=== PATIENT | female | born 1960 | race Caucasian/White ===

== ENCOUNTER 2020-08-30 09:37 | Day surgery (SDC) | payer MEDICARE, MEDICAID ==
[2020-08-28 12:16] LABS: BASOPHILS # (AUTO) 0.1 X10'3 (0-0.2); EOSINOPHILS # (AUTO) 0.2 X10'3 (0-0.9); EOSINOPHILS % (AUTO) 1.8 % (0-6); MONOCYTES # (AUTO) 0.6 X10'3 (0-0.9); RED CELL DISTRIBUTION WIDTH 13.8 % (11.5-14.5)
[2020-08-28 12:18] LABS: BASOPHILS % (AUTO) 1.2 % (0-1); LYMPHOCYTES # (AUTO) 3.4 X10'3 (1.1-4.8); LYMPHOCYTES % (AUTO) 40.5 % (21-51); MEAN CORPUSCULAR HEMOGLOBIN 29.4 PG (27.0-31.0); MEAN CORPUSCULAR VOLUME 89.1 FL (78-98); MEAN PLATELET VOLUME 11.9 FL (7.4-10.4); MONOCYTES % (AUTO) 7.1 % (2-12); NEUTROPHILS # (AUTO) 4.2 X10'3 (1.8-7.7); NEUTROPHILS % (AUTO) 49.4 % (42-75); PRE OP HEMATOCRIT 42.3 % (35.0-45.0); PRE OP HEMOGLOBIN 13.9 g/dL (12.0-16.0); PRE OP PLATELET COUNT 166 X10'3 (140-440); RED BLOOD COUNT 4.75 X10'6 (4.20-5.60)
[2020-08-28 12:26] LABS: ALBUMIN/GLOBULIN RATIO 1.1 (1.1-1.5); ALKALINE PHOSPHATASE 79 IU/L (46-116); BLOOD UREA NITROGEN 19 MG/DL (7-18); BUN/CREATININE RATIO 24.4 (6.6-38.0); CALCIUM 9.4 MG/DL (8.5-10.1); CHLORIDE 107 MMOL/L (99-107); CREATININE 0.78 MG/DL (0.40-0.90); PRE OP ALT 29 U/L (30-65); PRE OP ANION GAP 9 (8-16); PRE OP AST 21 U/L (10-37); PRE OP BILIRUB, TOTAL 0.3 MG/DL (0.0-1.0); PRE OP GLUCOSE 89 MG/DL (70-104); PRE OP POTASSIUM 3.7 MMOL/L (3.4-5.1); PRE OP SODIUM 143 MMOL/L (135-145); TOTAL CARBON DIOXIDE 27.5 MMOL/L (24-32); TOTAL PROTEIN 7.6 G/DL (6.4-8.2); eGFR 76 ML/MIN
[2020-08-28 12:30] LABS: PRE OP PROTIME 10.5 SECONDS (9.0-12.0)
[2020-08-28 12:54] LABS: LARGE PLATELETS FEW; PLATELET ESTIMATE NORMAL
[2020-08-28 12:55] LABS: GIANT PLATELET FEW; STOMATOCYTES FEW
[2020-08-30] VITALS (11 sets, daily range): BP systolic 123–145; BP diastolic 67–92
[~2020-08-30] VITALS: Ht 167.6 cm; Wt 86.6 kg
[~2020-08-30 09:37] MED LIST: ADAL40KI SQ; ASCO500C18 PO; BUPIVAcaine/PF 2.5 mg/ml (0.25%) 30ml vial ONE; CHOL20004 PO; DIPH25CA83 PO; HYDR25TA4 PO; INDOCYANINE GREEN 25 MG/10 ML VIAL IV ONE; LIDOcaine 1% 30ml preserv. free vial ONE; LISI10TA4 PO; LORA-268 PO; OMEP-50 PO; POTA8CAP20 PO; ceFAZolin 2gm in dextrose, iso 50 ML IV ONE; famotidine 20mg tablet PO ONE; ringers solution, lacted 1,000 ML IV SCH; tumeric PO
[2020-08-30] MEDS ORDERED: sevoflurane 250ml liquid IH ONE (12:11)
[2020-08-30] MEDS ORDERED: fentaNYL/PF 50MCG/1 ML 2ML syringe ONE (12:15)
[2020-08-30] MEDS ORDERED: midazolam 2 mg/2 ml injection ONE (12:15)
[2020-08-30] MEDS ORDERED: LIDOcaine 2% (20mg/ml) 5ml vial ONE (12:21)
[2020-08-30] MEDS ORDERED: rocuronium 10mg/ml inj IV ONE (12:21)
[2020-08-30] MEDS ORDERED: propofol inj 20 ML IV ONE (12:21)
[2020-08-30] MEDS ORDERED: neostigmine methylsulfate 1 MG/ML 10ml vial ONE (12:21)
[2020-08-30] MEDS ORDERED: glycopyrrolate 0.2mg/ml inj ONE (12:21)
[2020-08-30] MEDS ORDERED: dexamethasone sod phosphate 4mg/ml inj. ONE (12:21)
[2020-08-30] MEDS ORDERED: ondansetron/PF 4mg/2ml inj ONE (12:21)
[2020-08-30] MEDS ORDERED: proCHLORperazine 10 MG/2 ml inj IV PRN (13:00)
[2020-08-30] MEDS ORDERED: ondansetron/PF 4mg/2ml inj IV PRN (13:00)
[2020-08-30] MEDS ORDERED: morphine 2 MG/ML inj. syringe IV PRN (13:00)
[2020-08-30] MEDS ORDERED: meperidine/PF 25mg/ml syringe IV PRN ×3 (13:00)
[2020-08-30] MEDS ORDERED: ringers solution, lacted 1,000 ML IV SCH (13:00)
[2020-08-30] MEDS ORDERED: morphine 4 MG/ML inj SYRINge IV PRN (13:00)
[2020-08-30] MEDS ORDERED: acetaminophen 1,000mg/100ml IV 100 ML IV ONE (13:10)
[2020-08-30] MEDS ORDERED: sugammadex 200mg/2ml injection IV ONE (13:22)
--- NOTE | 2020-08-30 13:26 | NUR ---
Received from OR via , accompanied by Anesthesiologist DR LUNA and report given by Anesthesiolgist. PT AWAKE BUT C/O DIFFICULTY GETTING HER BREATH. NEB TREATMENT ORDERED. SKIN WARM AND PINK, MOVING EXT X 4, 3 LARGE BA'S CD, PIV LEFT WRIST 20G WITH LR 40ML/HR, NO C/O PAIN.
[2020-08-30] MEDS ORDERED: ipratropium/albuterol 3ml nebule NEB STA (13:27)
[2020-08-30] MEDS ORDERED: oxyCODONE/APAP 5-325mg tablet PO PRN (13:40)
--- NOTE | 2020-08-30 13:54 | NUR ---
RT AT BS AND NEB TREATMENT COMPLETED. PT STATES SHE IS ABLE TO BREATH EASIER. SATS 100%
[2020-08-30] MEDS ORDERED: oxyCODONE/APAP 5-325mg tablet PO ONE (14:25)
--- NOTE | 2020-08-30 14:39 | NUR ---
PT MEETS DISCHARGE CRITERA. IV REMOVED, [place] FLUIDS AND A SANDWICH, MILD C/O PAIN. WILL GIVE PAIN PILL PRIOR TO DISCHARGE, DISCHARGE INSTRUCTIONS REVIEWED WITH PT AND WRITTEN INSTRUCTIONS SENT WITH PT, VSS.
== END 2020-08-30 14:56 | disposition home or self-care (01) ==
LOC: PAS 09:37
PROVIDERS: ATTEND Surgery
DX: K80.10 Calculus of gallbladder with chronic cholecystitis without obstruction (principal); F17.210 Nicotine dependence, cigarettes, uncomplicated; F41.9 Anxiety disorder, unspecified; M19.90 Unspecified osteoarthritis, unspecified site; I10 Essential (primary) hypertension; Z88.0 Allergy status to penicillin; Z88.5 Allergy status to narcotic agent; Z88.1 Allergy status to other antibiotic agents; Z88.8 Allergy status to other drugs, medicaments and biological substances; Z86.19 Personal history of other infectious and parasitic diseases; Z79.899 Other long term (current) drug therapy; Z98.890 Other specified postprocedural states; Z79.01 Long term (current) use of anticoagulants; Z20.828 Contact with and (suspected) exposure to other viral communicable diseases
CPT/HCPCS: 36415; 47563; 80053; 82948; 85025; 85610; 85730; 87635; 93005; 94640; C9399; C9803; J0131; J1100; J2001; J2250; J2405; J2704; J2710; J3010; J3490; J7120; 85008; 88304; A4215; A4618; A7000

== ENCOUNTER 2023-11-24 06:41 | Inpatient (IN) | payer MEDICARE, MEDICAID ==
[2023-11-24] VITALS (34 sets, daily range): BP systolic 148–177; BP diastolic 58–102; PULSE 69–103; RESP 13–18; TEMP 97.9–98.5; O2SAT 90–100
[~2023-11-24] VITALS: Ht 167.6 cm; Wt 92.8 kg
[~2023-11-24 06:41] MED LIST changes: -BUPIVAcaine/PF 2.5 mg/ml (0.25%) 30ml vial ONE; -INDOCYANINE GREEN 25 MG/10 ML VIAL IV ONE; -LIDOcaine 1% 30ml preserv. free vial ONE; +LISI10TA27 PO; -LISI10TA4 PO; -OMEP-50 PO; +OMEP20CA16 PO; -ceFAZolin 2gm in dextrose, iso 50 ML IV ONE; -famotidine 20mg tablet PO ONE; -ringers solution, lacted 1,000 ML IV SCH
[2023-11-24] MEDS: HYDROmorphone inj. 0.5 MG/0.5 ML DISP.SYRIN IV ONE (07:25)
[2023-11-24] MEDS: ondansetron/PF 4mg/2ml inj IV ONE (07:25)
[2023-11-24] MEDS ORDERED: HYDR-3972 (08:06)
[2023-11-24] MEDS ORDERED: ATOR20TA66 PO (08:06)
[2023-11-24] MEDS ORDERED: nitroGLYCERIN 1gm ointment UD TP ONE (08:40)
[2023-11-24] MEDS ORDERED: ondansetron/PF 4mg/2ml inj IV ONE (08:40)
[2023-11-24] MEDS ORDERED: aspirin 325mg tablet PO ONE (08:40)
[2023-11-24] MEDS ORDERED: morphine 2 MG/ML inj. syringe IV ONE (08:40)
[2023-11-24] MEDS ORDERED: HYDROcodone/acetaminophen 10/325mg tab PO PRN (08:55)
[2023-11-24] MEDS ORDERED: potassium Cl 20 mEq SR tablet PO PRN ×2 (08:55)
[2023-11-24] MEDS ORDERED: acetaminophen 325mg tablet PO PRN (08:55)
[2023-11-24] MEDS ORDERED: magnesium 4gm in 100ml NS 100 ML IV PRN (08:55)
[2023-11-24] MEDS ORDERED: magnesium Cl slow-release 64mg tablet PO PRN (08:55)
[2023-11-24] MEDS ORDERED: morphine 2 MG/ML inj. syringe IV PRN ×2 (08:55)
[2023-11-24] MEDS ORDERED: mag hydrox/Alum hydrox/simeth 30ml oral suspension PO PRN (08:55)
[2023-11-24] MEDS ORDERED: magnesium 2GM in 50ml NS 50 ML IV PRN (08:55)
[2023-11-24] MEDS ORDERED: magnesium hydroxide 30ml (MOM) UD suspension PO PRN (08:55)
[2023-11-24] MEDS: ringers solution, lacted 1,000 ML IV SCH ×2 (09:21→12:25)
[2023-11-24] MEDS: levoFLOXACIN-Levaquin 750MG/D5 150 ML IV SCH (09:26)
[2023-11-24] MEDS: metroNIDAZOLE-Flagyl 500mg/NS 100 ML IV SCH ×2 (09:26→17:52)
[2023-11-24] MEDS ORDERED: sevoflurane 250ml liquid IH ONE (11:38)
[2023-11-24] MEDS ORDERED: fentaNYL/PF 50MCG/1 ML 2ML syringe ONE (11:45)
[2023-11-24] MEDS ORDERED: midazolam 1 mg/ML 2ml injection ONE (11:45)
[2023-11-24] MEDS: BUPIVAcaine/PF 2.5mg/ml (0.25%) 10ml vial ONE ×2 (12:02→12:03)
[2023-11-24] MEDS: LIDOcaine 1% (10mg/ml)w/preservative inj. 20ml MDV ONE (12:03)
[2023-11-24] MEDS ORDERED: dexamethasone sod phosphate 4mg/ml inj. ONE (12:19)
[2023-11-24] MEDS ORDERED: ondansetron/PF 4mg/2ml inj ONE (12:19)
[2023-11-24] MEDS ORDERED: rocuronium 10mg/ml inj IV ONE (12:19)
[2023-11-24] MEDS ORDERED: propofol inj 20 ML IV ONE (12:19)
[2023-11-24] MEDS ORDERED: hydrALAZINE 20mg/ml inj. IV PRN (12:25)
[2023-11-24] MEDS ORDERED: meperidine/PF 25mg/ml syringe IV PRN ×3 (12:25)
[2023-11-24] MEDS ORDERED: labetalol 20mg/4ml (5mg/ml) syringe IV PRN (12:25)
[2023-11-24] MEDS ORDERED: glycopyrrolate 0.2mg/ml inj ONE (12:40)
[2023-11-24] MEDS ORDERED: neostigmine methylsulfate 1 MG/ML 10ml vial ONE (12:40)
[2023-11-24] MEDS ORDERED: naloxone 0.4 mg/ml inj IV PRN (13:15)
[2023-11-24] MEDS: HYDROmorphone/PF 0.2 MG/ML SYRINGE IV PRN ×2 (13:20→16:27)
[2023-11-24] MEDS: ondansetron/PF 4mg/2ml inj IV PRN ×2 (14:15→18:43)
[2023-11-24] MEDS ORDERED: lisinopril 20mg tablet PO SCH (18:10)
[2023-11-24] MEDS: lisinopril 20mg tablet PO ONE (19:19)
[2023-11-24 19:40] LABS: EOSINOPHILS % (AUTO) 0 % (0-6); HEMOGLOBIN 13.7 g/dl (12.0-16.0); LYMPHOCYTES # (AUTO) 0.7 X10'3 (1.1-4.8); MONOCYTES # (AUTO) 0.1 X10'3 (0-0.9); NEUTROPHILS # (AUTO) 7.2 X10'3 (1.8-7.7)
[2023-11-24 19:42] LABS: BASOPHILS % (AUTO) 0.3 % (0-1); HEMATOCRIT 41.1 % (35.0-45.0); LYMPHOCYTES % (AUTO) 9.2 % (21-51); MEAN CORPUSCULAR HEMOGLOBIN 28.5 PG (27.0-31.0); MEAN CORPUSCULAR HGB CONC 33.3 g/dL (33.0-36.5); MEAN CORPUSCULAR VOLUME 85.6 FL (78-98); MEAN PLATELET VOLUME 10.4 FL (7.4-10.4); MONOCYTES % (AUTO) 0.8 % (2-12); NEUTROPHILS % (AUTO) 89.7 % (42-75); PLATELET COUNT 178 X10'3 (140-440); RED CELL DISTRIBUTION WIDTH 13.4 % (11.5-14.5); WHITE BLOOD COUNT 8.1 X10'3 (4.5-11.0)
[2023-11-24 19:48] LABS: ALANINE AMINOTRANSFERASE 104 U/L (12-78); ALBUMIN 3.5 G/DL (3.4-5.0); ALBUMIN/GLOBULIN RATIO 0.9 (1.1-1.5); ALKALINE PHOSPHATASE 93 IU/L (46-116); ANION GAP 14 (8-16); ASPARTATE AMINO TRANSFERASE 68 U/L (10-37); BILIRUBIN,TOTAL 0.5 MG/DL (0.1-1.0); BLOOD UREA NITROGEN 15 MG/DL (7-18); BUN/CREATININE RATIO 19.2 (10.0-20.0); CALCIUM 8.5 MG/DL (8.5-10.1); CHLORIDE 104 MMOL/L (99-107); CREATININE 0.78 MG/DL (0.40-0.90); GLUCOSE 151 MG/DL (70-104); POTASSIUM 3.1 MMOL/L (3.5-5.1); SODIUM 141 MMOL/L (135-145); TOTAL CARBON DIOXIDE 23.3 MMOL/L (24-32); TOTAL PROTEIN 7.3 G/DL (6.4-8.2); eCRCL 70 ML/MIN; eGFR 75 ML/MIN
[2023-11-24 20:28] LABS: LARGE PLATELETS FEW; PLATELET ESTIMATE NORMAL
[2023-11-24] MEDS: metoclopramide 5 mg/ml inj IV ONE (22:21)
[2023-11-25] VITALS (9 sets, daily range): BP systolic 145–182; BP diastolic 71–101; PULSE 81–103; RESP 16–19; TEMP 97.8–99.5; O2SAT 81–97
[2023-11-25] MEDS: K and/or MAG REPLACEMENT MC SCH (02:30)
[2023-11-25] MEDS: potassium Cl 40MEQ/1/2NS 520ml 520 ML IV PRN (02:33)
[2023-11-25] MEDS: HYDROcodone/acetaminophen 5mg/325mg tablet PO PRN (05:14)
[2023-11-25 07:41] LABS: APTT 24 SECONDS (22-32); PROTHROMBIN TIME 11.2 SECONDS (9.0-12.0)
[2023-11-25 07:43] LABS: BASOPHILS % (AUTO) 0.1 % (0-1); EOSINOPHILS % (AUTO) 0 % (0-6); HEMATOCRIT 38.7 % (35.0-45.0); LYMPHOCYTES # (AUTO) 1.9 X10'3 (1.1-4.8); LYMPHOCYTES % (AUTO) 14.5 % (21-51); MEAN CORPUSCULAR HEMOGLOBIN 28.6 PG (27.0-31.0); MEAN CORPUSCULAR HGB CONC 33.5 g/dL (33.0-36.5); MEAN CORPUSCULAR VOLUME 85.3 FL (78-98); MEAN PLATELET VOLUME 10.6 FL (7.4-10.4); MONOCYTES # (AUTO) 0.8 X10'3 (0-0.9); MONOCYTES % (AUTO) 6.3 % (2-12); NEUTROPHILS # (AUTO) 10.3 X10'3 (1.8-7.7); NEUTROPHILS % (AUTO) 79.1 % (42-75); PLATELET COUNT 188 X10'3 (140-440); RED BLOOD COUNT 4.54 X10'6 (4.20-5.60); RED CELL DISTRIBUTION WIDTH 13.5 % (11.5-14.5); WHITE BLOOD COUNT 13.1 X10'3 (4.5-11.0)
[2023-11-25 07:51] LABS: ALANINE AMINOTRANSFERASE 79 U/L (12-78); ALBUMIN 3.3 G/DL (3.4-5.0); ALBUMIN/GLOBULIN RATIO 0.9 (1.1-1.5); ALKALINE PHOSPHATASE 92 IU/L (46-116); ANION GAP 7 (8-16); ASPARTATE AMINO TRANSFERASE 43 U/L (10-37); BILIRUBIN,TOTAL 0.5 MG/DL (0.1-1.0); BLOOD UREA NITROGEN 15 MG/DL (7-18); BUN/CREATININE RATIO 18.8 (10.0-20.0); CALCIUM 8.3 MG/DL (8.5-10.1); CHLORIDE 107 MMOL/L (99-107); CHOLESTEROL 124 MG/DL (0-200); GLUCOSE 126 MG/DL (70-104); HDL CHOLESTEROL 61 MG/DL (35-60); LDL CHOLESTEROL 48 MG/DL (50-100); PHOSPHORUS 3.8 MG/DL (2.3-4.5); POTASSIUM 3.8 MMOL/L (3.5-5.1); SODIUM 139 MMOL/L (135-145); TOTAL CARBON DIOXIDE 25.2 MMOL/L (24-32); TOTAL PROTEIN 6.8 G/DL (6.4-8.2); TRIGLYCERIDES 53 MG/DL (20-135); eCRCL 68 ML/MIN; eGFR 73 ML/MIN
[2023-11-25] MEDS: lisinopril 10 MG tablet PO SCH (08:19)
[2023-11-25] MEDS: atorvastatin 20mg tablet PO SCH (08:22)
[2023-11-25] MEDS: metoclopramide 5 mg/ml inj IV PRN (12:14)
[2023-11-25] MEDS: acetaminophen 325mg tablet PO PRN (12:18)
[2023-11-25] MEDS: docusate sod 100mg capsule PO ONE (19:47)
[2023-11-25] MEDS: traZODone 50mg tablet PO SCH (20:22)
[2023-11-26] VITALS (8 sets, daily range): BP systolic 111–141; BP diastolic 61–66; PULSE 59–67; RESP 14–18; TEMP 97.8–99.1; O2SAT 91–96
[2023-11-26 02:25] LABS: BASOPHILS # (AUTO) 0.1 X10'3 (0-0.2); EOSINOPHILS % (AUTO) 0.3 % (0-6); LYMPHOCYTES # (AUTO) 4.3 X10'3 (1.1-4.8); MEAN CORPUSCULAR HEMOGLOBIN 28.8 PG (27.0-31.0); MEAN CORPUSCULAR HGB CONC 33.4 g/dL (33.0-36.5); MEAN CORPUSCULAR VOLUME 86.4 FL (78-98); MEAN PLATELET VOLUME 10.6 FL (7.4-10.4); MONOCYTES # (AUTO) 0.9 X10'3 (0-0.9); MONOCYTES % (AUTO) 8.3 % (2-12); NEUTROPHILS # (AUTO) 5.6 X10'3 (1.8-7.7); NEUTROPHILS % (AUTO) 51.4 % (42-75); PLATELET COUNT 154 X10'3 (140-440); RED BLOOD COUNT 4.17 X10'6 (4.20-5.60); RED CELL DISTRIBUTION WIDTH 13.4 % (11.5-14.5); WHITE BLOOD COUNT 10.9 X10'3 (4.5-11.0)
[2023-11-26 02:35] LABS: APTT 25 SECONDS (22-32); INR 1.1 INR; PROTHROMBIN TIME 11.5 SECONDS (9.0-12.0)
[2023-11-26 03:50] LABS: ALANINE AMINOTRANSFERASE 42 U/L (12-78); ALBUMIN 3.1 G/DL (3.4-5.0); ALKALINE PHOSPHATASE 75 IU/L (46-116); ANION GAP 12 (8-16); ASPARTATE AMINO TRANSFERASE 23 U/L (10-37); BILIRUBIN,TOTAL 0.5 MG/DL (0.1-1.0); BLOOD UREA NITROGEN 17 MG/DL (7-18); BUN/CREATININE RATIO 22.1 (10.0-20.0); CALCIUM 8.9 MG/DL (8.5-10.1); CHLORIDE 109 MMOL/L (99-107); CREATININE 0.77 MG/DL (0.40-0.90); GLUCOSE 118 MG/DL (70-104); MAGNESIUM 2.3 MG/DL (1.5-2.4); PHOSPHORUS 3.6 MG/DL (2.3-4.5); POTASSIUM 3.7 MMOL/L (3.5-5.1); SODIUM 144 MMOL/L (135-145); TOTAL CARBON DIOXIDE 22.7 MMOL/L (24-32); TOTAL PROTEIN 6.1 G/DL (6.4-8.2); eCRCL 71 ML/MIN; eGFR 76 ML/MIN
[2023-11-26] MEDS ORDERED: HYDR-3965 PO (11:36)
== END 2023-11-26 14:45 | disposition home or self-care (01) | DRG 399 ==
LOC: ER 06:41 → ED HOLD 08:59 → SUR 3N 17:06
PROVIDERS: ADMIT Internal Medicine; ATTEND Internal Medicine
PROC: 0DTJ4ZZ Resection of Appendix, Percutaneous Endoscopic Approach (ICD-10-PCS; 2023-11-24)
PROC: 8E0W4CZ Robotic Assisted Procedure of Trunk Region, Percutaneous Endoscopic Approach (ICD-10-PCS; principal; 2023-11-24 11:38)
DX: K35.80 Unspecified acute appendicitis (principal); E78.00 Pure hypercholesterolemia, unspecified; I10 Essential (primary) hypertension; K66.0 Peritoneal adhesions (postprocedural) (postinfection); I25.10 Atherosclerotic heart disease of native coronary artery without angina pectoris; Z96.652 Presence of left artificial knee joint; G47.30 Sleep apnea, unspecified; K21.9 Gastro-esophageal reflux disease without esophagitis; G89.29 Other chronic pain; Z88.6 Allergy status to analgesic agent; Z88.1 Allergy status to other antibiotic agents; Z88.5 Allergy status to narcotic agent; Z88.0 Allergy status to penicillin; Z88.8 Allergy status to other drugs, medicaments and biological substances; Z87.891 Personal history of nicotine dependence; Z79.899 Other long term (current) drug therapy; Z90.49 Acquired absence of other specified parts of digestive tract; Z95.1 Presence of aortocoronary bypass graft
CPT/HCPCS: 36415; 80053; 80061; 83735; 84100; 85008; 85025; 85610; 85730; 87081; 88304; 96374; 96375; 99291; A4215; A4615; A4618; G0378; J1100; J1170; J1956; J2250; J2405; J2704; J2710; J2765; J3010; J3480; J3490; J7120